=== PATIENT | female | born 1995 | race Caucasian/White ===

== ENCOUNTER 2016-09-25 03:57 | Emergency (ER) | payer OTHER | END 2016-09-25 05:22 | disposition home or self-care (01) | LOC: ER 03:57 | DX: G40.409 Other generalized epilepsy and epileptic syndromes, not intractable, without status epilepticus (principal); Z79.899 Other long term (current) drug therapy; Z88.0 Allergy status to penicillin | CPT/HCPCS: 36415; 96374; 96375; J2060 ==

== ENCOUNTER 2016-10-31 22:06 | Emergency (ER) | payer OTHER | END 2016-11-01 00:23 | disposition home or self-care (01) | LOC: ER 22:06 | DX: G40.409 Other generalized epilepsy and epileptic syndromes, not intractable, without status epilepticus (principal); Z79.899 Other long term (current) drug therapy; Z88.0 Allergy status to penicillin | CPT/HCPCS: 36415 ==